=== PATIENT | female | born 1980 | race Caucasian/White ===

== ENCOUNTER → 2019-01-17 10:02 | Outpatient (CLI) | payer OTHER, SELFPAY ==
[2019-01-19 14:57] LABS: HPV HC, High Risk Negative (Negative)
== END ==
PROVIDERS: Visit Provider Obstetrics & Gynecology
DX: Z12.4 Encounter for screening for malignant neoplasm of cervix (principal)
CPT/HCPCS: 87624; 88175; G0145

== ENCOUNTER → 2019-02-19 16:17 | Outpatient (CLI) | payer OTHER, SELFPAY ==
--- NOTE | 2019-02-19 16:22 | BI_ITS ---
MAMMOGRAPHY - BILATERAL SCREENING REASON FOR EXAM: Female, 38 years old. Routine annual screening examination. PERTINENT HISTORY: Non-contributory. TECHNIQUE: Digital bilateral breast rosalind (3D mammographic acquisition) in the CC and MLO projections. 2-D mediolateral oblique (MLO) and craniocaudad (CC) views of both breasts were obtained. CAD: Full Field Digital Mammography with Computer Added Detection was performed. COMPARISON: None. Baseline examination. FINDINGS: Breast Composition: The breasts are extremely dense, which lowers the sensitivity of mammography. There are no dominant masses or suspicious calcifications. No other significant abnormalities are identified. BI/SCREENING MAMM (CAD), BILAT IMPRESSION: Negative screening mammogram. Yearly followup mammogram recommended. (A) ASSESSMENT CATEGORY: BIRADS Category 1: Negative. A letter regarding these results will be sent to the patient by the facility within 30 days. Approximately 10% of breast cancers are not detected by mammography. A normal mammogram should not delay biopsy of a clinically suspicious abnormality. [id number] Electronically Signed: Marek Grossman, at 8:31 EDT , Service support ,
== END ==
PROVIDERS: Referring Provider Obstetrics & Gynecology; Visit Provider Obstetrics & Gynecology
DX: Z12.31 Encounter for screening mammogram for malignant neoplasm of breast (principal)
CPT/HCPCS: 77063; 77067

== ENCOUNTER → 2020-05-07 16:18 | Outpatient (CLI) | payer BC, SELFPAY ==
--- NOTE | 2020-05-07 16:21 | BI_ITS ---
MAMMOGRAPHY - BILATERAL SCREENING 3-D TOMOSYNTHESIS REASON FOR EXAM: Female, 39 years old. Routine screening PERTINENT HISTORY: No significant family history. TECHNIQUE: 2-D mammograms and 3-D Tomosynthesis of the breast (s) were performed. CAD was performed. COMPARISON: 02/19/2019 FINDINGS: The breast composition is extremely dense tissue Scattered benign calcifications are seen. No dense spiculated masses or suspicious microcalcifications are identified. No architectural distortion is identified. There is no skin thickening or retraction. There has been no significant change since the prior study. BI/SCREEN MAMM (CAD) W/LOIS BILAT IMPRESSION: No mammographic signs of malignancy. Routine yearly mammograms recommended. ASSESSMENT CATEGORY: BIRADS Category 2: Benign. A letter regarding these results will be sent to the patient by the facility within 30 days. FOLLOW UP RECOMMENDATION: Yearly follow up mammogram recommended. (A) Approximately 10% of breast cancers are not detected by mammography. A normal mammogram should not delay biopsy of a clinically suspicious abnormality. Electronically Signed: Abiel Oden MD at 7:42 EDT , Service support ,
== END ==
PROVIDERS: Referring Provider Obstetrics & Gynecology; Visit Provider Obstetrics & Gynecology
DX: Z12.31 Encounter for screening mammogram for malignant neoplasm of breast (principal)
CPT/HCPCS: 77063; 77067

== ENCOUNTER → 2020-06-09 | Outpatient (CLI) | payer BC, SELFPAY ==
[2020-06-13 14:21] LABS: HPV APTIMA, High Risk Negative (Negative)
[2020-06-13 14:23] LABS: HPV Reflexed? YES, CHARGE PATIENT
== END | disposition home or self-care (01) ==
LOC: LABSPEC 09:21
PROVIDERS: Visit Provider Obstetrics & Gynecology
DX: Z12.4 Encounter for screening for malignant neoplasm of cervix (principal)
CPT/HCPCS: 87624; 88175; G0145

== ENCOUNTER → 2021-01-29 14:58 | Outpatient (CLI) | payer OTHER, SELFPAY ==
--- NOTE | 2021-01-29 15:01 | BI_ITS ---
MAMMOGRAPHY - BILATERAL SCREENING REASON FOR EXAM: Female, 40 years old. Routine annual screening examination. PERTINENT HISTORY: Non-contributory. TECHNIQUE: Digital bilateral breast lois (3D mammographic acquisition) in the CC and MLO projections. 2-D mediolateral oblique (MLO) and craniocaudad (CC) views of both breasts were obtained. CAD: Full Field Digital Mammography with Computer Added Detection was performed. COMPARISON: Comparison is made with prior examination dated 05/07/2020 and 02/19/2019. FINDINGS: Breast Composition: The breasts are extremely dense, which lowers the sensitivity of mammography. There are no dominant masses or suspicious calcifications. No other significant abnormalities are identified. There has been no significant change since the prior study. BI/SCRN MAMM (CAD)W/LOIS BILAT IMPRESSION: Stable bilateral screening mammogram. Yearly follow-up mammogram recommended. (A) ASSESSMENT CATEGORY: BIRADS Category 1: Negative. A letter regarding these results will be sent to the patient by the facility within 30 days. Approximately 10% of breast cancers are not detected by mammography. A normal mammogram should not delay biopsy of a clinically suspicious abnormality. [id number] Electronically Signed: Marek Grossman MD at 15:35 EDT , Service support ,
== END ==
PROVIDERS: PCP Family Medicine; Referring Provider Obstetrics & Gynecology; Visit Provider Obstetrics & Gynecology
DX: Z12.31 Encounter for screening mammogram for malignant neoplasm of breast (principal)
CPT/HCPCS: 77063; 77067

== ENCOUNTER → 2021-02-17 16:46 | Outpatient (CLI) | payer OTHER, SELFPAY ==
[2021-02-20 20:49] LABS: HPV APTIMA, High Risk Negative (Negative)
== END ==
PROVIDERS: PCP Family Medicine; Visit Provider Obstetrics & Gynecology
DX: Z12.4 Encounter for screening for malignant neoplasm of cervix (principal)
CPT/HCPCS: 87624; 88175; G0145

== ENCOUNTER 2022-02-02 15:12 | Outpatient (CLI) | payer OTHER, SELFPAY ==
--- NOTE | 2022-02-02 15:15 | BI_ITS ---
MAMMOGRAPHY - BILATERAL SCREENING 3-D TOMOSYNTHESIS REASON FOR EXAM: Female, 41 years old. SCREENING PERTINENT HISTORY: No significant family history. TECHNIQUE: 2-D mammograms and 3-D Tomosynthesis of the breast (s) were performed. CAD was performed. COMPARISON: 01/29/2021 FINDINGS: The breast composition is Extermely dense tissue. Scattered benign calcifications are seen. No dense spiculated masses or suspicious microcalcifications are identified. No architectural distortion is identified. There is no skin thickening or retraction. There has been no significant change since the prior study. BI/SCRN MAMM (CAD)W/LOIS BILAT IMPRESSION: No mammographic signs of malignancy. Routine yearly mammograms recommended. ASSESSMENT CATEGORY: BIRADS Category 1: Negative. A letter regarding these results will be sent to the patient by the facility within 30 days. FOLLOW UP RECOMMENDATION: Yearly follow up mammogram recommended. (A) Approximately 10% of breast cancers are not detected by mammography. A normal mammogram should not delay biopsy of a clinically suspicious abnormality. Electronically Signed: Sinan Burch MD at 16:22 EDT ,
== END 2022-02-02 23:59 | disposition home or self-care (01) ==
LOC: OPBI 15:13
PROVIDERS: PCP Family Medicine; Referring Provider Obstetrics & Gynecology; Visit Provider Obstetrics & Gynecology
DX: Z12.31 Encounter for screening mammogram for malignant neoplasm of breast (principal)
CPT/HCPCS: 77063; 77067

== ENCOUNTER → 2023-02-03 | Outpatient (CLI) | payer OTHER, SELFPAY ==
--- NOTE | 2023-02-03 15:36 | BI_ITS ---
MAMMOGRAPHY - BILATERAL SCREENING REASON FOR EXAM: Female, 42 years old. Routine annual screening examination. PERTINENT HISTORY: Non-contributory. TECHNIQUE: Digital bilateral breast lois (3D mammographic acquisition) in the CC and MLO projections. 2-D mediolateral oblique (MLO) and craniocaudad (CC) views of both breasts were obtained. CAD: Full Field Digital Mammography with Computer Added Detection was performed. COMPARISON: Comparison is made with prior study dated February 02, 2022 and January 29, 2021. FINDINGS: Breast Composition: The breasts are extremely dense, which lowers the sensitivity of mammography. There are no dominant masses or suspicious calcifications. No other significant abnormalities are identified. There has been no significant change since the prior study. BI/SCRN MAMM (CAD)W/LOIS BILAT IMPRESSION: Stable bilateral screening mammogram. Yearly follow-up mammogram recommended. (A) ASSESSMENT CATEGORY: BIRADS Category 1: Negative. A letter regarding these results will be sent to the patient by the facility within 30 days. Approximately 10% of breast cancers are not detected by mammography. A normal mammogram should not delay biopsy of a clinically suspicious abnormality. [id number] Electronically Signed: Marek Grossman MD at 8:25 EDT ,
== END | disposition home or self-care (01) ==
LOC: OPBI 15:25
PROVIDERS: Referring Provider Obstetrics & Gynecology; Visit Provider Obstetrics & Gynecology
DX: Z12.31 Encounter for screening mammogram for malignant neoplasm of breast (principal)
CPT/HCPCS: 77063; 77067

== ENCOUNTER → 2024-02-07 | Outpatient (CLI) | payer OTHER, SELFPAY ==
--- NOTE | 2024-02-07 15:59 | BI_ITS ---
MAMMOGRAPHY - BILATERAL SCREENING REASON FOR EXAM: Female, 43 years old. Routine annual screening examination. PERTINENT HISTORY: Non-contributory. TECHNIQUE: Digital bilateral breast lois (3D mammographic acquisition) in the CC and MLO projections. 2-D mediolateral oblique (MLO) and craniocaudad (CC) views of both breasts were obtained. CAD: Full Field Digital Mammography with Computer Added Detection was performed. COMPARISON: Comparison is made with prior study of February 03, 2023 and February 02, 2022. FINDINGS: Breast Composition: The breasts are extremely dense, which lowers the sensitivity of mammography. There are no dominant masses or suspicious calcifications. No other significant abnormalities are identified. There has been no significant change since the prior study. BI/SCRN MAMM (CAD)W/LOIS BILAT IMPRESSION: Stable bilateral screening mammogram. Yearly follow-up mammogram recommended. (A) ASSESSMENT CATEGORY: BIRADS Category 1: Negative. A letter regarding these results will be sent to the patient by the facility within 30 days. Approximately 10% of breast cancers are not detected by mammography. A normal mammogram should not delay biopsy of a clinically suspicious abnormality. [id number] Electronically Signed: Marek Grossman MD at 8:26 EDT ,
== END | disposition home or self-care (01) ==
LOC: OPBI 15:58
PROVIDERS: Referring Provider Obstetrics & Gynecology; Visit Provider Obstetrics & Gynecology
DX: Z12.31 Encounter for screening mammogram for malignant neoplasm of breast (principal)
CPT/HCPCS: 77063; 77067

== ENCOUNTER → 2025-02-07 | Outpatient (CLI) | payer OTHER, SELFPAY ==
--- NOTE | 2025-02-07 14:33 | BI_ITS ---
EXAM: SCRN MAMM (CAD)W/LOIS BILAT DATE: 02/07/2025 CLINICAL HISTORY: F, Age 44 y/o , SCREENING No family history. BREAST CANCER RISK ASSESSMENT: Not assessed. TECHNIQUE: Bilateral screening digital breast tomosynthesis with 2D and 3D images. Computer aided detection. COMPARISON: Prior exam(s) dated February 07, 2024.. FINDINGS: TISSUE DENSITY: The breast tissue is extremely dense which lowers the sensitivity of mammography. Bilateral Breast Mammographic Findings: No significant masses, calcifications or other abnormalities are identified. No suspicious masses, areas of developing architectural distortion, or suspicious calcifications. There has been no significant interval change. BI/SCRN MAMM (CAD)W/LOIS BILAT IMPRESSION: OVERALL FINAL ASSESSMENT: BIRADS 1 NEGATIVE RECOMMENDATION: Routine annual follow-up in 1 Year A letter with findings and recommendations will be mailed to the patient. Reading Location: [place] [id number]
== END | disposition home or self-care (01) ==
LOC: OPBI 14:31
PROVIDERS: Referring Provider Obstetrics & Gynecology; Visit Provider Obstetrics & Gynecology
DX: Z12.31 Encounter for screening mammogram for malignant neoplasm of breast (principal)
CPT/HCPCS: 77063; 77067

== ENCOUNTER → 2025-09-21 | Outpatient (CLI) | payer OTHER, SELFPAY ==
--- OUTSIDE RECORDS SUMMARY | 2025-09-21 07:14 | XMS RPT_ITS | CCD ---
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 Facility: [facility] Address: [address] [place] [address] Result Comment: <130 mg/dL, Optimal 130-159 mg/dL, Near optimal/above optimal 160-189 mg/dL, Borderline high 190-219 mg/dL, High >219 mg/dL, Very high Secondary prevention optimal non HDL Cholesterol levels are recommended to be <100 mg/dL Performed By: #### 2 4331-1 #### [facility] CLIA [id number] [address] [place] [address] [place] [facility] CLIA [id number] [address] [place] [address] [place] Cholesterol.total/C holesterol in HDL [Mass ratio] 1.96 {ratio} Normal <5.10 [facility] Comment on above: Order Comment: Speci men Type: BLOOD SPECIMEN Ordering Facility: [facility] Address: [address] [place] [address] Performed By: #### 2 4331-1 #### [facility] CLIA [id number] [address] [place], [place] [address] [place] [facility] [id number] [address] [place] [address] [place] FASTING TIME 12 hrs Normal [facility] Comment on above: Order Comment: Speci men Type: BLOOD SPECIMEN Ordering Facility: [facility] Address: [address] [place] [address] Performed By: #### 2 4331-1 #### [facility] CLIA [id number] [address] [place], [place] [address]IA [id number] [address] [place] [address] STATES [facility] Triglyceride [Mass/Vol] 43 mg/dL Normal <150 [facility] Comment on above: Order Comment: Speci men Type: BLOOD SPECIMEN Ordering Facility: [facility] Address: [address] [place] [address] Result Comment: <150 mg/dL, Normal 150-199 mg/dL, Borderline high 200-499 mg/dL, High >499 mg/dL, Very high Performed By: #### 2 4331-1 #### [facility] CLIA [id number] [address] [place] [address] [facility] [id number] [address] [place] [address] [place] US NECK Khalif 12-08-2020 US NECK MASS Patient Name: GEMMA GRANADOS STUDY: US NECK MASS; Left; 12/08/2020 4:02 pm INDICATION: left anterior neck fullness Localized swelling, mass and lump, neck. COMPARISON: None. ACCESSION NUMBER(S): [id number] ORDERING CLINICIAN: MINDI ANGUIANO TECHNIQUE: Grayscale and color Doppler ultrasound evaluation of the bilateral cervical soft tissues. FINDINGS: Evaluation of the bilateral neck soft tissues is performed; no mass, fluid collection, or other suspicious sonographic finding is demonstrated to involve the bilateral neck soft tissues on the submitted images. If any further imaging evaluation is felt to be clinically indicated, then a contrast-enhanced soft tissue neck CT would be the next best imaging test for further assessment. IMPRESSION: As above. Electronically signed by: MARIANNE BAILON MD [facility] Vital Signs Date Time Vital Sign Value Performing Clinician Facility 06-19-2025 16:36-0400 Body height 167.6 cm Paulo MARTINEZ Work Phone: [phone] [place] [address] 06-19-2025 16:36-0400 Body mass index (BMI) [Ratio] 22.6 kg/m2 Paulo Carrasco PRINCIPAL STRATEGIST-WASH HOUSE WORKER Work Phone: [phone] [place] [address] 06-19-2025 16:36-0400 Body temperature 98.6 [degF] Paulo Onealey PRINCIPAL STRATEGIST-WASH HOUSE WORKER Work Phone: [phone] [place] [address] 06-19-2025 16:36-0400 Body weight 63.5 kg Paulo Onealey PRINCIPAL STRATEGIST-WASH HOUSE WORKER Work Phone: 1(081)[phone] [place] [address] 06-19-2025 16:36-0400 Diastolic blood pressure 87 mm[Hg] Paulo Onealey PRINCIPAL STRATEGIST-WASH HOUSE WORKER Work Phone: [phone])[phone] [place] [address] 06-19-2025 16:36-0400 Heart rate 76 /min Paulo Carrasco PRINCIPAL STRATEGIST-WASH HOUSE WORKER Work Phone: [phone] [place] [address] 06-19-2025 16:36-0400 SaO2% (BldA) [Mass fraction] 95 % Paulo Carrasco PRINCIPAL STRATEGIST-WASH HOUSE WORKER Work Phone: [phone])854-913739 [place] [address] 06-19-2025 16:36-0400 Systolic blood pressure 132 mm[Hg] Paulo Carrasco PRINCIPAL STRATEGIST-WASH HOUSE WORKER Work Phone: [phone])097-905739 [place] [address] 12-14-2024 16:16-0500 Body height 167.6 cm Carola Spiveyta PRINCIPAL STRATEGIST-WASH HOUSE WORKER Work Phone: [facility] 12-14-2024 16:16-0500 Body mass index (BMI) [Ratio] 23.73 kg/m2 Carola Spiveyta PRINCIPAL STRATEGIST-WASH HOUSE WORKER Work Phone: [facility] 12-14-2024 16:16-0500 Body temperature 97.9 [degF] Carola Spiveyta PRINCIPAL STRATEGIST-WASH HOUSE WORKER Work Phone: [facility] 12-14-2024 16:16-0500 Body weight 66.68 kg Carola Spiveyta PRINCIPAL STRATEGIST-WASH HOUSE WORKER Work Phone: [facility] 12-14-2024 16:16-0500 Diastolic blood pressure 85 mm[Hg] Carola Augustus PRINCIPAL STRATEGIST-WASH HOUSE WORKER Work Phone: [facility] 12-14-2024 16:16-0500 Heart rate 82 /min Carola Augustus PRINCIPAL STRATEGIST-WASH HOUSE WORKER Work Phone: [facility] 12-14-2024 16:16-0500 Respiratory rate 20 /min Carola Augustus PRINCIPAL STRATEGIST-WASH HOUSE WORKER Work Phone: [facility] 12-14-2024 16:16-0500 SaO2% (BldA) [Mass fraction] 97 % Carola Augustus PRINCIPAL STRATEGIST-WASH HOUSE WORKER Work Phone: [facility] 12-14-2024 16:16-0500 Systolic blood pressure 144 mm[Hg] Carola Augustus PRINCIPAL STRATEGIST-WASH HOUSE WORKER Work Phone: [facility] 11-02-2024 14:18-0500 Body height 166.4 cm Prashanth Lopes MD Work Phone: [facility] 11-02-2024 14:18-0500 Body mass index (BMI) [Ratio] 23.43 kg/m2 Prashanth Lopes MD Work Phone: [facility] 11-02-2024 14:18-0500 Body weight 64.86 kg Prashanth Lopes MD Work Phone: [facility] 11-02-2024 14:18-0500 Diastolic blood pressure 72 mm[Hg] Prashanth Lopes MD Work Phone: [facility] 11-02-2024 14:18-0500 Systolic blood pressure 110 mm[Hg] Prashanth Lopes MD Work Phone: [facility] Encounters Encounter Date Encounter Type Care Provider Facility Start: 06-19-2025 End: 06-19-2025 Office outpatient visit 15 minutes Paulo Carrasco PRINCIPAL STRATEGIST-WASH HOUSE WORKER Work Phone: [facility] Comment on above: Bronchitis (Primary Dx) Start: 06-19-2025 End: 06-19[facility]: 02-07-2025 End: 02-07-2025 ambulatory Bonita Primary Care Physician [facility] Work Phone: Start: 02-07-2025 End: 02-07-[address] Prashanth Lopes MD -Outpatient Breast Imaging Work Phone: Start: 02-07-2025 End: 02-07-2025 ambulatory Prashanth Lopes Facility:[facility] Start: 12-14-2024 End: 12-14-2024 Patient encounter procedure Carola Coffman PRINCIPAL STRATEGIST-WASH HOUSE WORKER Work Phone: [facility] Comment on above: Herpes zoster withou t complication (Primary Dx) Start: 12-14-2024 End: 12-14-2024 ambulatory MINDI Clemens [facility] Start: 11-02-2024 End: 11-02-2024 ambulatory PRASHANTH LOPES Facility:[facility] Start: 11-02-2024 End: 11-02-2024 Patient encounter procedure Prashanth Lopes MD Work Phone: OB/Gynecology Comment on above: Encounter for gyneco logical examination (general) (routine) without abnormal findings (Primary Dx); Screening for cervical cancer; Encounter for screening for human papillomavirus (HPV) Start: 11-02-2024 End: 11-02-2024 Patient encounter status Prashanth Lopes MD Work Phone: [facility] Start: 10-29-2024 End: 10-29-2024 Emergency department patient visit PHYSICIAN [facility] Start: 02-07-2024 End: 02-07-2024 ambulatory [facility] Work Phone: Start: 02-07-2024 End: 02-07-2024 Patient encounter procedure [facility]-Outpatient Breast Imaging Work Phone: Start: 12-20-2023 ambulatory Prashanth schneider MD Work Phone: OB/Gynecology Comment on above: Mammogram Start: 11-11-2023 End: 11-11-2023 ambulatory PRASHANTH LOPES Facility:[facility] Start: 02-03-2023 End: 02-03-2023 ambulatory [facility] Work Phone: Start: 02-03-2023 End: 02-03-2023 Patient encounter procedure [facility]-Outpatient Breast Imaging Start: 02-03-2022 AUDIT Mindi Anguiano Work Phone: [facility] Work Phone: Start: 02-02-2022 End: 02-02-2022 Patient encounter procedure [facility]-Outpatient Breast Imaging Procedures Date Procedure Procedure Detail Performing Clinician Start: 02-07-2025 Screening mammography N o Primary Care Physician Start: 11-02-2024 Microscopic observat ion [Identifier] in Cervix by Cyto stain Carola Coffman PRINCIPAL STRATEGIST-WASH HOUSE WORKER Work Phone: Start: 02-07-2024 Screening mammography Start: 11-11-2023 Lipid 1996 panel - S roel or Plasma Prashanth Lopes MD Work Phone: Start: 02-03-2023 Screening mammography Start: 02-02-2022 End: 02-02-2022 Screening mammography Start: 12-04-2020 Follow-up visit Plan of Treatment Date Care Activity Detail Author Start: 10-15-2031 DTaP/Tdap/Td Vaccine s (2 - Td or Tdap) DTaP/Tdap/Td Vaccines (2 - Td or Tdap) [facility] Start: 10-15-2031 Urine microalbumin profile DTaP,Tdap,Td Vaccine (2 - Td or Tdap) [facility] Start: 11-11-2028 Lipid panel Lipid Screening [facility] Start: 2028 Zoster Vaccines (1 o f 2) Zoster Vaccines (1 of 2) [facility] Start: 11-02-2027 Screening for malign ant neoplasm of cervix [facility] Start: 11-20-2026 Screening for malign ant neoplasm of colon [facility] Start: 11-11-2026 Diabetes Screening Diabetes Screenin g [facility] Start: 02-17-2026 Screening for malign ant neoplasm of cervix [facility] Start: 11-04-2025 End: 11-04-2025 Patient encounter procedure 11/04/2025 2:20 PM EST Office Visit OB/Gynecology [address] [place] [address] Prashanth Lopes MD [address] [place] [address] [facility]Gynecology Comment on above: [facility] Start: 06-17-2025 COVID-19 Vaccine ( season) COVID-19 Vaccine ( season) [facility] Start: 06-17-2025 Influenza vaccination Influenza Vacc ine (#1) [facility] Start: 02-06-2025 Screening for malign ant neoplasm of breast Mammogram Screening [facility] Start: 06-17-2024 Covid-19 Vaccine ( season) Covid-19 Vaccine () [facility] Start: 06-17-2024 Influenza vaccination Influenza Vacc ine (#1) [facility] Start: 02-18-2024 Screening for malign ant neoplasm of cervix Cervical Cancer Screening [facility] Start: 02-04-2024 Screening for malign ant neoplasm of breast Mammogram Screening [facility] Start: 10-17-2023 Depression Assessment Depression Ass essment [facility] Start: 06-17-2023 Covid-19 Vaccine ( season) Covid-19 Vaccine () [facility] Start: 06-17-2023 Influenza vaccination Influenza Vacc ine (#1) [facility] Start: 2023 Screening for malign ant neoplasm of colon [facility] Start: 02-02-2023 Screening for malign ant neoplasm of breast Mammogram [facility] Start: 1999 Screening for malign ant neoplasm of cervix HPV/Cotest [facility] Start: 1997 Hepatitis B Vaccine (1 of 3 - 19+ 3-dose series) Hepatitis B Vaccine (1 of 3 - 19+ 3-dose series) [facility] Start: 1997 Hepatitis B Vaccines (1 of 3 - 19+ 3-dose series) Hepatitis B Vaccines (1 of 3 - 19+ 3-dose series) [facility] Start: 1996 Anxiety Screening Anxiety Screening [facility] Start: 1996 Depression Screening Depression Scre audra [facility] Start: 1996 Hepatitis C screening Hepatitis C Sc satinder [facility] Start: 1996 HIV screening HIV Screening [facility] Start: 1979 MMR Vaccines (1 of 1 - Standard series) MMR Vaccines (1 of 1 - Standard series) [facility] Start: 1978 Hepatitis B Vaccine (1 of 3 - 3-dose series) Hepatitis B Vaccine (1 of 3 - 3-dose series) [facility] Start: 1978 HIV screening HIV Screening [facility] Start: 1978 Lipid panel Lipid Panel [facility] Start: 1978 Screening for malign ant neoplasm of colon [facility] Start: 1978 Yearly Adult Physical Yearly Adult P hysical [facility] PAP TEST PAP TEST Lab Zeke baptiste Encounter for gynecological examination (general) (routine) without abnormal findings Screening for cervical cancer Encounter for screening for human papillomavirus (HPV) 11/02/2024 3:00 PM EST [facility] Work Phone: [facility] Immunizations Immunization Date Immunization Notes Care Provider Sadaf cochran 10-15-2021 tetanus toxoid, redu enrico diphtheria toxoid, and acellular pertussis vaccine, adsorbed Prashanth Lopes MD Work Phone: [facility] Work Phone: Payers Date Payer Category Payer Self-pay [id number] 2024 Managed Care (Private) [employer] [id number] 2024 Unknown [id number] 2023 Unknown 2023 Unknown [id number] 1978 Unknown [id number] 1978 Unknown [id number] 1978 Unknown [id number] Unknown [id number] Unknown [id number] Social History Date Type Detail Facility Start: 11-01-2023 End: 11-02-2024 Non-smoker Non-smoker [facility] [employer] [facility] Work Phone: Start: 1980 Sex Assigned At Female W [facility] Start: 11-01-2023 End: 06-19-2025 Tobacco smoking status NCIS Never smoked tobacco [facility] Start: 11-01-2023 End: 06-19-2025 Tobacco use and exposure Smokeless tobacco non-user [facility] Start: 11-01-2023 End: 11-02-2024 Alcohol intake Current drinker of alcohol (finding) [facility] Start: 11-01-2023 End: 11-02-2024 Tobacco use panel [facility] Start: 09-11-2022 National Score (1-100), lower number is lower risk 66 [facility] Start: 1980 Sex Assigned At Not on file [facility] Tobacco smoking status NCIS Tobacco smoking consumption unknown [facility] Work Phone: Start: 12-04-2024 End: 12-14-2024 Exposure to SARS-CoV-2 (event) Not sure [facility] Start: 02-12-2025 Sex Female (finding) [facility] History of Present illness Narrative 06-19-2025 Paulo Cody Onealey, PRINCIPAL STRATEGIST-WASH HOUSE WORKER - 06/19/2025 4:30 PM EDT Note Date & Type Note Facility 06-19-2025 History of Present illness Narrative [facility] NOTE: Name: Gemma Granados, 45 y.o. CSN:[id number] ALL: Allergies[1] Chief Complaint: Cough (Cough x 1 month) Encounter Date: 06/19/2025 HPI: The history was obtained from the patient. eGmma is a 45 y.o. female, who presents with a chief complaint of productive cough that began approximately 1 month ago that has continued over the last month without change. Patient reports cough is nonproductive in nature, denies any shortness of breath. Able to run daily without shortness of breath or coughing. Denies any shortness of breath, body aches, fatigue. Does admit to seasonal allergies for which she uses Claritin. PMHx: Medical History[2] Current Medications[3] PMSx: Surgical History[4] Fam Hx: Family History[5] SOC. Hx: Social History Socioeconomic History Marital status: Spouse name: Not on file Number of children: Not on file Years of education: Not on file Highest education level: Not on file Occupational History Not on file Tobacco Use Smoking status: Never Smokeless tobacco: Never Substance and Sexual Activity Alcohol use: Not on file Drug use: Not on file Sexual activity: Not on file Other Topics Concern Not on file Social History Narrative Not on file Social Drivers of Health Financial Resource Strain: Not on file Food Insecurity: Not on file Transportation Needs: Not on file Physical Activity: Not on file Stress: Not on file Social Connections: Not on file Intimate Partner Violence: Not on file Housing Stability: Not on file Vitals: 06/19/25 1636 BP: 132/87 Pulse: 76 Temp: 37 C (98.6 F) SpO2: 95% 63.5 kg (140 lb) Physical Exam Vitals and nursing note reviewed. Constitutional: Appearance: Normal appearance. She is not ill-appearing. HENT: Head: Normocephalic and atraumatic. Mouth/Throat: Mouth: Mucous membranes are moist. Cardiovascular: Rate and Rhythm: Normal rate and regular rhythm. Heart sounds: Normal heart sounds. Pulmonary: Breath sounds: Normal breath sounds. Abdominal: General: Bowel sounds are normal. Musculoskeletal: General: Normal range of motion. Cervical back: Normal range of motion. Skin: General: Skin is dry. Capillary Refill: Capillary refill takes less than 2 seconds. Neurological: Mental Status: She is alert and oriented to person, place, and time. I did personally review Gemma's past medical history, surgical history, social history, as well as family history (when relevant). In this case, I also oversaw the her drug management by reviewing her medication list, allergy list, as well as the medications that I prescribed during the UC course and/or recommended as an out-patient (including possible OTC medications such as acetaminophen, NSAIDs , etc). After reviewing the items above, I did look at previous medical documentation, such as recent hospitalizations, office visits, and/or recent consultations with PCP/specialist. SDOH: Another factor that I considered in Gemma's care was her Social Determinants of Health (SDOH). During this UC encounter, she did not have social determinants of health. Those SDOH influencing Gemma's care are: none UC COURSE/MEDICAL DECISION MAKING: Gemma is a 45 y.o., who presents with a working diagnosis of 1. Bronchitis with a differential to include: pneumonia, asthma, COPD, sinusitis, GERD, common cold, influenza. Plan: Recommend changing allergy medication to Zyrtec over the next 2 to 3 days if does not see any improvement begin antibiotic therapy empirically with a Z-Martin and Medrol Dosepak Return to urgent care, primary care provider, or emergency department with worsening symptoms No red flags on exam. Plan of care reviewed with patient, agreeable to discharge Roseanne Carrasco DNP Advanced Practice Provider [facility] Please note: While the patient may or may not have received printed discharge paperwork, all relevant medical findings, test results, and treatment details are accessible through the electronic medical record system. The patient is encouraged to review their chart via the patient portal for comprehensive information and follow-up instructions. [1] No Known Allergies [2] Past Medical History: Diagnosis Date Personal history of other medical treatment 02/03/2022 History of mammography, screening [3] Current Outpatient Medications Medication Sig Dispense Refill cholecalciferol (Vitamin D-3) 50 mcg (2,000 unit) capsule Take 1 capsule (50 mcg) by mouth once daily. azithromycin (Zithromax Z-Martin) 250 mg tablet Take 2 tablets (500 mg) on Day 1, followed by 1 tablet (250 mg) once daily on Days 2 through 5. 6 tablet 0 methylPREDNISolone (Medrol Dospak) 4 mg tablets Follow schedule on package instructions 21 tablet 0 No current facility-administered medications for this visit. [4] History reviewed. No pertinent surgical history. [5] No family history on file. documented in this encounter [facility] Work Phone: History of Present illness Narrative 12-14-2024 JUAN Becker - 12/14/2024 4:45 PM EST Note Date & Type Note Facility 12-14-2024 History of Present illness Narrative [facility] JUAN Becker Visit Note - 12/14/2024 4:53 PM This note was generated with voice recognition software and may contain errors including spelling, grammar, syntax, and misrecognization of what was dictated. Patient: Gemma Granados, , 44 y.o., female PCP: No primary care provider on file. --- ALLERGIES: No Known Allergies CURRENT MEDICATIONS: Current Outpatient Medications Medication Instructions cholecalciferol (Vitamin D-3) 50 mcg (2,000 unit) capsule 1 capsule, Daily valACYclovir (VALTREX) 1,000 mg, oral, 3 times daily --- PAST MEDICAL HX: No known health issues. SURGICAL HX: History reviewed. No pertinent surgical history. FAMILY HX: No pertinent history. SOCIAL HX: has no history on file for tobacco use. Is an senior financial reporting accountant. Dog recently had knee surgery. Is under a lot of stress. --- CHIEF COMPLAINT: Chief Complaint Patient presents with Rash Right shoulder rash and right arm and wrist skin irritation X 2 days HISTORY OF PRESENT ILLNESS: The history was obtained from patient. Gemma is a 44 y.o. female, who presents with a chief complaint of rash to R shoulder, R arm, and R chest - sxs started on her R shoulder on Tuesday night and rash has spread since then. Reports the rash is both slightly itchy and tender/sensitive to touch - rash stings. Denies having rash anywhere else. Denies any drainage; no known injury or irritants. Reports has not noticed any fever/chills, n/v, or other systemic symptoms. Has been applying cortisone cream and switched to wearing cotton shirts (had been wearing a cashmere shirt prior to onset of the rash) - unsure if these are helping; has not tried any other OTC medications for symptoms. Denies any other complaints. No known ill contacts. States does have a history of chicken pox as a child. Has been under a lot of stress lately - is an senior financial reporting accountant (tax time) and her dog also recently had knee surgery. REVIEW OF SYSTEMS: 10 systems reviewed negative with exception of history of present illness as listed above. TODAY'S VITALS: BP 144/85 Pulse 82 Temp 36.6 C (97.9 F) (Temporal) Resp 20 Ht 1.676 m (5' 6) Wt 66.7 kg (147 lb) SpO2 97% BMI 23.73 kg/m PHYSICAL EXAMINATION: General: Pleasant female, alert and oriented, in no acute distress. Eyes: Eyes non-icteric; conjunctiva clear. HENT: Airway patent. Neck: Supple; no palpable lymphadenopathy Respiratory: Respirations are non-labored; lungs clear to auscultation - no wheezes, rhonchi, or rales. Breath sounds are equal, Symmetrical chest wall expansion. Non-dyspneic. Cardiovascular: Normal rate, Regular rhythm. Normal S1S2. No m/r/g. Musculoskeletal: Grossly normal. Gait unremarkable. Has FROM all extremities. Integumentary: Clusters of clear vesicles (on erythematous base) and maculopapular rash scattered to R posterior shoulder and goes in a band down entire R arm to the wrist; has similar, vesicular rash also noted to R chest (rash limited to T1 dermatomal area)- rash does not cross the midline. No pustules or drainage, but rash tender to palpation. No swelling, scabbing, crusting or signs of bacterial infection. No rash noted elsewhere on body. Neurologic: Alert, Oriented, Normal sensory, Normal motor function. Cognition and Speech: Oriented, Speech clear and coherent. Psychiatric: Cooperative, Appropriate mood & affect. --- Medical Decision Making LABORATORY or RADIOLOGICAL IMAGING ORDERS/RESULTS: None IMPRESSION/PLAN: Course: Worsening; stable 1. Herpes zoster without complication (Primary) - valACYclovir (Valtrex) 1 gram tablet; Take 1 tablet (1,000 mg) by mouth 3 times a day for 7 days. Dispense: 21 tablet; Refill: 0 Symptoms and exam consistent with Herpes Zoster (shingles), although reviewed other potential etiologies. Will start oral antiviral SHAYAN. Discussed prednisone taper, as well, but patient reports discomfort is manageable and prefers to avoid prednisone at this point. Discussed that cool compresses, NSAIDs, and calamine lotion may be helpful. Discussed shingles and expectations for treatment and resolution of symptoms at length, as well as the possibility of complications, including postherpetic neuralgia. Encouraged to monitor closely for any s/sxs of bacterial infection, and reviewed precautionary measures - should avoid contact with and immunocompromised individuals, as well as children who have not yet had the chicken pox virus. Encouraged to f/u with PCP if not improving over the next week, or sooner if any additional problems develop. Patient agreed with plan of care; questions were encouraged and answered. JUAN Becker Advanced Practice Provider [facility] documented in this encounter [facility] Work Phone: Progress note 11-02-2024 Note Date & Type Note Facility 11-02-2024 Note HNO ID: [id number] Author: PRASHANTH LOPES MD Service: ? Author Type: Physician Type: Progress Notes Filed: 11/02/2024 14:49 Note Text: Software Quality Assurance Analyst offered: Patient declines. Gemma is a 44 year old who presents for an annual gynecologic exam without complaints. Still get period: Yes Menses: cycles every 21-30 days and 4-5 days of flow Bleeding amount bothersome: No Bleeding between periods: No Period symptoms: Acne Menopause symptoms: None Time with current partner: control frequency: Never HPV vaccine: No; Last pap smear: 2020 History of abnormal pap: remotely Bothersome pelvic pain: No Last mammogram: 2023normal OB History T0 L0 SAB0 IAB0 Ectopic0 Multiple0 Live Births0 Strawberry Grower History LMP: 10/26/2024 (Exact Date), Having periods Age at Menarche: 11 Age at First : Age at Menopause: Strawberry Grower History Comments: Sexual Activity: Yes; Male; infertility Contraception: No contraception data on record Menstrual Tracking History Flowsheet Row Office Visit from 11/02/2024 in OB/Gynecology Period Duration (Days) 5 Menstrual Flow Moderate PAST MEDICAL HISTORY Diagnosis Date Abnormal glandular Papanicolaou smear of cervix 2002 approx Female infertility PAST SURGICAL HISTORY Procedure Laterality Date VAGINOSCOPY 07/07/2006 FAMILY HISTORY Problem Relation Age of Onset Diabetes Mother Heart Mother stent put in Heart Attack Father 52 other (vascular surgery for circulation) Father No Known Problems Sister twin in utero- cord around neck SOCIAL HISTORY Social History Tobacco Use Smoking status: Never Smokeless tobacco: Never Vaping Use Vaping status: Never Used Substance Use Topics Alcohol use: Yes Drug use: Never REVIEW OF SYSTEMS Abdomen: No abdominal pain, nausea, vomiting, diarrhea, or constipation. No bloating, early satiety, indigestion, or increased flatulence. Bladder: No dysuria, gross hematuria, urinary frequency, urinary urgency, or incontinence. Breast: No breast lumps, nipple d/c, overlying skin changes, redness or skin retraction. Allergies and current medication updated:Yes SENSITIVE EXAM: The sensitive examination was discussed with the Patient or Patient's Authorized Buyer Grain. As applicable, any other physician, advance practice provider, medical student, or other health professional student that will be observing or involved in the sensitive examination for educational or training purposes was discussed with the Patient or Authorized Buyer Grain. The Patient or Authorized Buyer Grain has agreed to proceed with the sensitive examination. (Sensitive examination includes inspection and/or palpation of the breasts, pelvis, prostate and anorectal regions). EXAM: BP 110/72 Ht 5' 5.5 (1.66m) Wt 143 lb (64.9kg) LMP 10/26/2024 BMI 23.43 kg/(m2). GENERAL: pleasant, female in no apparent distress HEENT: Normocephalic, atraumatic, mucus membranes moist, and no lesions NECK: Supple, full range of motion, no adenopathy, and thyroid normal DERMATOLOGY: Normal, without lesions, non-icteric, and non-hirsute BREAST: soft, non-tender, symmetric, no dominant mass, normal nipple-areolar complex, no lymphadenopathy, and no nipple discharge CHEST: Normal inspiratory effort ABDOMEN: soft, non-tender, and no masses PELVIC: external genitalia normal, normal Bartholin's glands, urethra, Oretta's glands, no vulvar lesions, no cervical lesions, good vaginal support, physiologic discharge present, normal appearing perineal body and perianal region BIMANUAL: uterus normal size, shape and consistency, no adnexal masses, and non-tender RECTOVAGINAL: deferred. NEURO: alert and oriented x3,exam grossly non-focal EXTREMITIES: normal ASSESSMENT/PLAN: 1) Health maintenance: Pap done with HPV. Mammogram ordered. 2) Contraception: none. Contraceptive options reviewed and information provided. 3) STD screening: Declined STD check. 4) Follow up one year or sooner as needed Prashanth Lopes MD [facility] History of Present illness Narrative 11-02-2024 Prashanth Lopes MD - 11/02/2024 2:13 PM EST Note Date & Type Note Facility 11-02-2024 History of Presen t illness Narrative Software Quality Assurance Analyst offered: Patient declines. Gemma is a 44 year old who presents for an annual gynecologic exam without complaints. Still get period: Yes Menses: cycles every 21-30 days and 4-5 days of flow Bleeding amount bothersome: No Bleeding between periods: No Period symptoms: Acne Menopause symptoms: None Time with current partner: control frequency: Never HPV vaccine: No; Last pap smear: 2020 History of abnormal pap: remotely Bothersome pelvic pain: No Last mammogram: 2023normal OB History T0 L0 SAB0 IAB0 Ectopic0 Multiple0 Live Births0 Strawberry Grower History LMP: 10/26/2024 (Exact Date), Having periods Age at Menarche: 11 Age at First : Age at Menopause: Strawberry Grower History Comments: Sexual Activity: Yes; Male; infertility Contraception: No contraception data on record Menstrual Tracking History Flowsheet Row Office Visit from 11/02/2024 in OB/Gynecology Period Duration (Days) 5 Menstrual Flow Moderate PAST MEDICAL HISTORY Diagnosis Date Abnormal glandular Papanicolaou smear of cervix 2002 approx Female infertility PAST SURGICAL HISTORY Procedure Laterality Date VAGINOSCOPY 07/07/2006 FAMILY HISTORY Problem Relation Age of Onset Diabetes Mother Heart Mother stent put in Heart Attack Father 52 other (vascular surgery for circulation) Father No Known Problems Sister twin in utero- cord around neck SOCIAL HISTORY Social History Tobacco Use Smoking status: Never Smokeless tobacco: Never Vaping Use Vaping status: Never Used Substance Use Topics Alcohol use: Yes Drug use: Never REVIEW OF SYSTEMS Abdomen: No abdominal pain, nausea, vomiting, diarrhea, or constipation. No bloating, early satiety, indigestion, or increased flatulence. Bladder: No dysuria, gross hematuria, urinary frequency, urinary urgency, or incontinence. Breast: No breast lumps, nipple d/c, overlying skin changes, redness or skin retraction. Allergies and current medication updated:Yes SENSITIVE EXAM: The sensitive examination was discussed with the Patient or Patient's Authorized Buyer Grain. As applicable, any other physician, advance practice provider, medical student, or other health professional student that will be observing or involved in the sensitive examination for educational or training purposes was discussed with the Patient or Authorized Buyer Grain. The Patient or Authorized Buyer Grain has agreed to proceed with the sensitive examination. (Sensitive examination includes inspection and/or palpation of the breasts, pelvis, prostate and anorectal regions). EXAM: BP 110/72 Ht 5' 5.5 (1.66m) Wt 143 lb (64.9kg) LMP 10/26/2024 BMI 23.43 kg/(m^2). GENERAL: pleasant, female in no apparent distress HEENT: Normocephalic, atraumatic, mucus membranes moist, and no lesions NECK: Supple, full range of motion, no adenopathy, and thyroid normal DERMATOLOGY: Normal, without lesions, non-icteric, and non-hirsute BREAST: soft, non-tender, symmetric, no dominant mass, normal nipple-areolar complex, no lymphadenopathy, and no nipple discharge CHEST: Normal inspiratory effort ABDOMEN: soft, non-tender, and no masses PELVIC: external genitalia normal, normal Bartholin's glands, urethra, Oretta's glands, no vulvar lesions, no cervical lesions, good vaginal support, physiologic discharge present, normal appearing perineal body and perianal region BIMANUAL: uterus normal size, shape and consistency, no adnexal masses, and non-tender RECTOVAGINAL: deferred. NEURO: alert and oriented x3,exam grossly non-focal EXTREMITIES: normal ASSESSMENT/PLAN: 1) Health maintenance: Pap done with HPV. Mammogram ordered. 2) Contraception: none. Contraceptive options reviewed and information provided. 3) STD screening: Declined STD check. 4) Follow up one year or sooner as needed Prashanth Lopes MD documented in this encounter [facility] Note 12-20-2023 Telephone Encounter - Zaira Adames RN - 12/20/2023 4:36 PM EST Note Date & Type Note Facility 12-20-2023 Miscellaneous Notes Formattin g of this note might be different from the original. [facility] order to RR to sign. documented in this encounter [facility] Evaluation note Note Date & Type Note Facility Evaluation note No assessment information availa ble [facility] Work Phone: Evaluation note Note Date & Type Note Facility Evaluation note Diagnosis Encounter for gynecological examination (general) (routine) without abnormal findings- Primary Screening for cervical cancer Screening for malignant neoplasm of the cervix Encounter for screening for human papillomavirus (HPV) Special screening examination for human papillomavirus (HPV) documented in this encounter [facility] Evaluation note Note Date & Type Note Facility Evaluation note Diagnosis Herpes zoster without complication- Primary documented in this encounter [facility] Work Phone: Evaluation note Note Date & Type Note Facility Evaluation note Diagnosis Bronchitis- Primary Bronchitis, not specified as acute or chronic documented in this encounter [facility] Work Phone: Reason for referral (narrative) Note Date & Type Note Facility Reason for referral (narrative) No reason for referral information available [facility] Work Phone: Summary Purpose Family History No Family History Records FoundUnknown Family Member Name Dates Details : Father Status:Active Family history of diabetes m ellitus: Mother(V18.0, Z83.3) Status:Active Advance Directives No Advanced Directives Records FoundNo Advanced Directives Records FoundNo Advanced Directives Records FoundNo Advanced Directives Records FoundNo Advanced Directives Records FoundNo Advanced Directives Records Found Chief Complaint and Reason for Visit Chief Complaint SCREENING Chief Complaint Admit Date SCREENING February 07, 2025 2:2 9pm Additional Source Comments INFORMATION SOURCE (unrecogn ized section and content) DATE CREATED AUTHOR 12/06/2020 [facility] DATE CREATED AUTHOR AUTHOR'S ORGANIZ ATION 12/13/2020 [facility] DATE CREATED AUTHOR AUTHOR'S ORGANIZ ATION 11/05/2024 [facility] DATE CREATED AUTHOR AUTHOR'S ORGANIZ ATION 12/08/2024 [facility] DATE CREATED AUTHOR AUTHOR'S ORGANIZ ATION 02/13/2025 [facility] DATE CREATED AUTHOR AUTHOR'S ORGANIZ ATION 06/21/[address] [facility] Goals (unrecognized section and content) Goals may be documented in a n alternate sectionGoals may be documented in an alternate sectionGoals may be documented in an alternate sectionGoals may be documented in an alternate section Care Teams (unrecognized sec tion and content) Team Status: Active Member Role Status Dates No Primary Care Physician Family Provider Active No Primary Care Physician Primary Care Provider Active Team Status: Inactive Member Role Status Dates Dr. Coleman Salinas MD Attending Provider, Referring Pr ovider Active No Primary Care Physician Primary Care Provider Active Team Status: Inactive Member Role Status Dates No Primary Care Physician Primary Care Provider Active Dr. Prashanth Lopes MD Attending Provider, Referring Provider Active Team Status: Active Member Role Status Dates No Primary Care Physician Primary Care Provider Active Team Status: Inactive Member Role Status Dates No Primary Care Physician Primary Care Provider Active Start: February 07, 2025 End: February 07, 2025 Dr. Prashanth Lopes MD Attending Provider Active Start: February 07, 2025 End: February 07, 2025 Dr. Prashanth Lopes MD Referring Provider Active Start: February 07, 2025 End: February 07, 2025 Retail Stocker Relationship Specialty Start Date End Date Kranthi Mccormick, ANTHONY-WASH HOUSE WORKER [address] [place] [phone] PCP - General Family Medicine 06/19/25 Source Comments (unrecognize d section and content) In the event this informatio n is protected by the Federal Confidentiality of Alcohol and Drug Abuse Patient Records regulations: The Federal rules restrict any use of the information to criminally investigate or prosecute any alcohol or drug abuse patient.[facility] the event this information is protected by the Federal Confidentiality of Alcohol and Drug Abuse Patient Records regulations: The Federal rules restrict any use of the information to criminally investigate or prosecute any alcohol or drug abuse patient.[facility] Reason for Visit (unrecogniz ed section and content) Reason Comments Yearly Exam Reason Comments Rash Right shoulder rash and right arm and wrist skin irritation X 2 days Reason Comments Cough Cough x 1 month FOR RECORDS PERTAINING TO PATIENTS WHO ARE OR HAVE BEEN ENROLLED IN A CHEMICAL DEPENDENCY/SUBSTANCEABUSE PROGRAM, SOME INFORMATION MAY BE OMITTED. This clinical summary was aggregated from multiple sources. Caution should be exercised in using it in the provision of clinical care. This summary normalizes information from multiple sources, and as a consequence, information in this document may materially change the coding, format and clinical context of patient data. In addition, data may be omitted in some cases. CLINICAL DECISIONS SHOULD BE BASED ON THE PRIMARY CLINICAL RECORDS. [employer] [facility]. provides no warranty or guarantee of the accuracy or completeness of information in this document.
--- NOTE | 2025-09-21 07:24 | MRI_ITS ---
PROCEDURE: SPINE THORACIC (ROUTINE) 09/21/2025 REASON FOR EXAM: MID BACK PAIN; PARESTHESIAS IN LOWER EXTREMITIES TECHNIQUE: Procedure Code: MRISPT Modality: MR Procedure: SPINE THORACIC (ROUTINE) Multiplanar and multisequence images were obtained. CONTRAST: None COMPARISON: None FINDINGS: Vertebrae: No evidence of vertebral fracture. There is no abnormal signal within the thoracic vertebral bodies. Alignment: There is normal alignment of the thoracic spine. Spinal Cord: The visualized spinal cord is normal. There are no abnormal masses or fluid collections within the spinal canal. There is no neural foraminal narrowing. The paravertebral soft tissues are normal. MRI/Spine Thoracic (Routine) IMPRESSION: Normal MR imaging of the thoracic spine. Reading Location: [place] [id number]
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
--- NOTE | 2025-09-21 07:24 | MRI_ITS ---
PROCEDURE: SPINE LUMBAR (ROUTINE) 09/21/2025 REASON FOR EXAM: LOW BACK PAIN; PARESTHESIAS TECHNIQUE: Procedure Code: MRISPL Modality: MR Procedure: SPINE LUMBAR (ROUTINE) COMPARISON: None. FINDINGS: Vertebrae: There is normal bone marrow signal in the vertebral bodies. There are no compression fractures. There is a transitional vertebrae at the L5 position. Alignment: There is no scoliosis. Conus Medullaris: The conus medullaris terminates normally at the T12-L1 level. There are no abnormal masses or fluid collections within the spinal canal. L1-2: Unremarkable. L2-3: Unremarkable. L3-4: Unremarkable. L4-5: Unremarkable. There is a transitional vertebrae at L5. There is a rudimentary intervertebral disc at L5 S1. The visualized sacrum is otherwise unremarkable. MRI/Spine Lumbar (Routine) IMPRESSION: Transitional vertebrae at L5. MR imaging of the lumbar spine is otherwise unre markable. Reading Location: [place] [id number]
== END | disposition home or self-care (01) ==
PROVIDERS: Referring Provider Psychiatry & Neurology Neurology; Visit Provider Psychiatry & Neurology Neurology
DX: M54.50 Low back pain, unspecified (principal); R20.2 Paresthesia of skin; M54.6 Pain in thoracic spine
CPT/HCPCS: 72141; 72146; 72148